=== PATIENT | male | born 1960 | race Caucasian/White ===

== ENCOUNTER 2020-02-27 12:00 | Outpatient (CLI) | payer OTHER ==
[2020-02-27] MEDS ORDERED: LISI40TA PO (12:37)
[2020-02-27] MEDS ORDERED: OXYC-306 PO (12:37)
[2020-02-27] MEDS ORDERED: METF500T17 PO (12:37)
[2020-02-27] MEDS ORDERED: CHLO25TA PO (12:37)
[2020-02-27] MEDS ORDERED: PRAV40TA2 PO (12:37)
[2020-02-27 13:02] LABS: MICROSCOPIC AUTO
[2020-02-27 13:08] LABS: BASOPHILS # (AUTO) 0.06 x10^3/uL (0-0.1); BASOPHILS % (AUTO) 1 % (0-1); EOSINOPHILS # (AUTO) 0.31 x10^3/uL (0-0.4); EOSINOPHILS % (AUTO) 3 % (1-7); LYMPHOCYTES # (AUTO) 2.77 x10^3/uL (1-3.4); LYMPHOCYTES % (AUTO) 30 % (22-44); MD NO; MEAN CORPUSCULAR HEMOGLOBIN 30.8 pg (27.5-34.5); MEAN CORPUSCULAR HGB CONC 33.6 g/dL (33.2-36.2); MONOCYTES # (AUTO) 0.63 x10^3/uL (0.2-0.8); MONOCYTES % (AUTO) 7 % (2-9); NEUTROPHILS # (AUTO) 5.39 x10^3/uL (1.8-6.8); NEUTROPHILS % (AUTO) 59 % (42-75); PLATELET COUNT 265 x10^3/uL (130-400); RED BLOOD COUNT 4.94 x10^6/uL (4.38-5.82); RED CELL DISTRIBUTION WIDTH 13.4 % (9.4-14.8)
[2020-02-27 13:10] LABS: INTERNATIONAL NORMALIZED RATIO 0.89 (0.93-1.1); PROTHROMBIN TIME 9.4 Seconds (9.6-11.5)
[2020-02-27 13:13] LABS: CHLORIDE 101 mmol/L (98-107)
[2020-02-27 13:18] LABS: ALANINE AMINOTRANSFERASE 52 U/L (12-78); ALBUMIN 3.8 g/dL (3.4-5.0); ALKALINE PHOSPHATASE 81 U/L (45-117); ANION GAP 4 mmol/L (5-15); BILIRUBIN,TOTAL 0.6 mg/dL (0.2-1.0); CALCIUM 9.3 mg/dL (8.5-10.1); CREATININE 0.91 mg/dL (0.7-1.3); TOTAL PROTEIN 7.4 g/dL (6.4-8.2)
[2020-03-02] MEDS ORDERED: LIDOCAINE/MPF 2%-EPI 1:200K, 20 ML ONE (09:24)
[2020-03-04] MEDS ORDERED: ENOX40SY4 SQ (17:07)
== END 2020-02-27 23:59 | disposition home or self-care (01) ==
LOC: STAR 12:00
PROVIDERS: ATTEND Orthopaedic Surgery Orthopaedic Surgery of the Spine
DX: Z01.818 Encounter for other preprocedural examination (principal); M48.061 Spinal stenosis, lumbar region without neurogenic claudication
CPT/HCPCS: 36415; 71046; 80053; 81001; 85025; 85610; 85730; 93005

== ENCOUNTER 2020-03-17 07:44 | Inpatient (IN) | payer OTHER ==
[~2020-03-17] VITALS: Ht 188 cm; Wt 132.0 kg
[~2020-03-17 07:44] MED LIST: BUPIVACAINE/PF-EPI 0.25% 1:200K ONE; CHLO25TA PO; ENOX40SY4 SQ; EPINEPHRINE 1 MG/ML, 1ML ONE; LIDOCAINE/PF 0.5% ,50ML ONE; LISI40TA PO; METF500T17 PO; OXYC-306 PO; PRAV40TA2 PO; VANCOMYCIN 1,000 MG ONE
[2020-03-17] MEDS ORDERED: LACTATED RINGERS 1,000 ML IV ONE (09:06)
[2020-03-17] MEDS ORDERED: CHLORHEXIDINE 15 ML UDC MM ONE (09:06)
[2020-03-17 09:10] VITALS: BP 134/91
[2020-03-17] MEDS ORDERED: FENTANYL PF 250 MCG/5ML ONE (09:20)
[2020-03-17] MEDS ORDERED: MIDAZOLAM 1 MG/ML, 2ML ONE (09:20)
[2020-03-17] MEDS ORDERED: LIDOCAINE PF 2%, 5ML ONE (10:10)
[2020-03-17] MEDS ORDERED: MEPERIDINE/PF 25MG/0.5ML IVPush PRN (11:00)
[2020-03-17] MEDS ORDERED: ALBUTEROL SULFATE 2.5 MG/3 ML NPPB PRN (11:00)
[2020-03-17] MEDS ORDERED: hydrALAzine 20 MG/ML, 1ML IV PRN (11:00)
[2020-03-17] MEDS ORDERED: PROMETHAZINE 25 MG/ML, 1ML IVPush PRN (11:00)
[2020-03-17] MEDS ORDERED: ACETAMINOPHEN 325 MG TABLET PO PRN (11:00)
[2020-03-17] MEDS ORDERED: DIPHENHYDRAMINE 50 MG/ML, 1ML IVPush PRN (11:00)
[2020-03-17] MEDS ORDERED: LABETALOL 5MG/ML, 20ML IV PRN (11:00)
[2020-03-17] MEDS ORDERED: OXYcodone 5 MG/5 ML ORAL.SOL UDC PO PRN (11:00)
[2020-03-17] MEDS ORDERED: ONDANSETRON 2MG/ML, 2ML ONE (11:12)
[2020-03-17] MEDS ORDERED: CEFAZOLIN 1,000 MG ONE ×2 (11:12)
[2020-03-17] MEDS ORDERED: PROPOFOL 10 MG/ML, 20ML ONE (11:12)
[2020-03-17] MEDS ORDERED: ROCURONIUM 10MG/ML,5ML ONE (11:12)
[2020-03-17] MEDS ORDERED: DEXAMETHASONE 4 MG/ML, 1ML ONE (11:12)
[2020-03-17] MEDS ORDERED: GLYCOPYRROLATE 0.2MG/1ML, 5ML ONE (11:12)
[2020-03-17] MEDS ORDERED: SUCCINYLCHOLINE 20 MG/ML, 10ML ONE (11:12)
[2020-03-17] MEDS ORDERED: NEOSTIGMINE 1 MG/ML, 10ML ONE (11:12)
[2020-03-17] MEDS ORDERED: FENTANYL PF 100 MCG/2ML ONE ×4 (12:02→14:17)
[2020-03-17] MEDS ORDERED: VANCOMYCIN 1,000 MG IM ONE (13:49)
[2020-03-17] MEDS ORDERED: OXYcodone 5 MG/5 ML ORAL.SOL UDC ONE (14:17)
[2020-03-17] MEDS: FENTANYL PF 100 MCG/2ML IV PRN ×2 (14:20→14:25)
[2020-03-17] MEDS: HYDROmorphone 1 MG/ML, 1ML INJ IVPush PRN ×3 (14:30→15:20)
[2020-03-17] MEDS ORDERED: HYDROmorphone 1 MG/ML, 1ML INJ ONE ×2 (14:31→15:22)
[2020-03-17] MEDS ORDERED: METHOCARBAMOL 1,000 MG in DEXTROSE 5% 100 ML IV ONE (15:00)
[2020-03-17] MEDS ORDERED: MAGNESIUM HYDROXIDE 8%, 30ML UDC PO PRN (17:00)
[2020-03-17] MEDS ORDERED: PROMETHAZINE 25 MG/ML, 1ML IM PRN (17:00)
[2020-03-17] MEDS ORDERED: HYDROcodone/APAP 5/325 TABLET PO PRN (17:00)
[2020-03-17] MEDS: D5%-0.9% NACL+KCL 20MEQ 1,000 ML IV SCH (17:00)
[2020-03-17] MEDS ORDERED: ONDANSETRON 2MG/ML, 2ML IV PRN (17:00)
[2020-03-17] MEDS ORDERED: BISACODYL 10 MG SUPP PR PRN (17:00)
[2020-03-17 18:59] VITALS: BP 154/89
[2020-03-17] MEDS: CEFAZOLIN PMX 1GM/50ML 50 ML IVPB SCH (19:30)
[2020-03-17] MEDS: SENNA/DOCUSATE TABLET PO SCH (19:59)
[2020-03-17] MEDS: OXYcodone IR 5MG TABLET PO PRN ×2 (20:00→23:29)
[2020-03-17] MEDS ORDERED: PRAVASTATIN 40 MG TABLET PO SCH (21:00)
[2020-03-17] MEDS: METHOCARBAMOL 750 MG in DEXTROSE 5% 100 ML IV SCH (23:25)
[2020-03-18 00:41] VITALS: BP 117/66
[2020-03-18] MEDS: D5%-0.9% NACL+KCL 20MEQ 1,000 ML IV SCH ×2 (03:00→13:00)
[2020-03-18] MEDS: OXYcodone IR 5MG TABLET PO PRN ×3 (03:05→15:50)
[2020-03-18] MEDS: CEFAZOLIN PMX 1GM/50ML 50 ML IVPB SCH (03:06)
[2020-03-18 03:30] VITALS: BP 114/74
[2020-03-18 05:38] LABS: BASOPHILS # (AUTO) 0.02 x10^3/uL (0-0.1); BASOPHILS % (AUTO) 0 % (0-1); EOSINOPHILS # (AUTO) 0.05 x10^3/uL (0-0.4); EOSINOPHILS % (AUTO) 0 % (1-7); LYMPHOCYTES % (AUTO) 18 % (22-44); MD NO; MEAN CORPUSCULAR HGB CONC 33.8 g/dL (33.2-36.2); MEAN CORPUSCULAR VOLUME 91.7 fL (81-97); MEAN PLATELET VOLUME 7.4 fL (7.4-10.4); MONOCYTES # (AUTO) 1.13 x10^3/uL (0.2-0.8); MONOCYTES % (AUTO) 9 % (2-9); NEUTROPHILS # (AUTO) 9.27 x10^3/uL (1.8-6.8); NEUTROPHILS % (AUTO) 73 % (42-75); PLATELET COUNT 341 x10^3/uL (130-400); RED BLOOD COUNT 4.21 x10^6/uL (4.38-5.82)
[2020-03-18 05:44] LABS: ANION GAP 9 mmol/L (5-15); CALCIUM 8.1 mg/dL (8.5-10.1); CHLORIDE 99 mmol/L (98-107); CREATININE 0.95 mg/dL (0.7-1.3)
[2020-03-18] MEDS: METHOCARBAMOL 750 MG in DEXTROSE 5% 100 ML IV SCH ×2 (06:33→15:00)
[2020-03-18] MEDS ORDERED: metFORMIN 500 MG TABLET PO SCH (08:00)
[2020-03-18 08:24] VITALS: BP 109/61
[2020-03-18] MEDS: SENNA/DOCUSATE TABLET PO SCH (08:37)
[2020-03-18] MEDS ORDERED: CHLORTHALIDONE 25 MG TABLET PO SCH (09:00)
[2020-03-18] MEDS ORDERED: LISINOPRIL 40 MG TABLET PO SCH (09:00)
[2020-03-18] MEDS ORDERED: OXYC10TA6 PO (12:27)
[2020-03-18] MEDS ORDERED: METH750T87 PO (12:28)
[2020-03-18 13:47] VITALS: BP 101/60
[2020-03-19] MEDS ORDERED: METHOCARBAMOL 750 MG TABLET PO SCH (23:00)
== END 2020-03-18 16:30 | disposition home or self-care (01) | DRG 460 ==
LOC: ORIP 07:44 → 4NE 16:06 → DCLOUNGE 03-18 16:22
PROVIDERS: ADMIT Orthopaedic Surgery Orthopaedic Surgery of the Spine; ATTEND Orthopaedic Surgery Orthopaedic Surgery of the Spine
PROC: 0SG30AJ Fusion of Lumbosacral Joint with Interbody Fusion Device, Posterior Approach, Anterior Column, Open Approach (ICD-10-PCS; principal; 2020-03-17 10:30)
DX: M48.07 Spinal stenosis, lumbosacral region (principal); M54.17 Radiculopathy, lumbosacral region
CPT/HCPCS: 36415; 72100; 80048; 82962; 85025; 87635; C1713; G0378; J0171; J0690; J1100; J1170; J2001; J2250; J2405; J2704; J2710; J3010; J3370; C1762; J0330; J2800; J7120